=== PATIENT | female | born 1990 | race American Indian/Alaskan Native ===

== ENCOUNTER 2018-04-03 09:40 | Outpatient (CLI) | payer MEDICAID ==
[2018-04-03 10:01] VITALS: BP 112/70
[2018-04-03] MEDS ORDERED: LACTATED RINGERS 500 ML IV ONE (11:00)
--- NOTE | 2018-04-03 17:12 | Ultrasound Report ---
FINAL REPORT EXAM: US OB LIMITED HISTORY: PLACENTA SCAN TECHNIQUE: Limited OB ultrasound was performed PRIORS: None. FINDINGS: Single live intrauterine fetus is present in cephalic presentation with a heart rate of 149 beats per minute. The placenta is grade 2 and left lateral in location. No evidence of placental abruption. No evidence of placental separation. The study is limited for assessment for placenta previa as the int ernal cervical os was not well seen. IMPRESSION: No evidence of placental abruption.
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
== END 2018-04-03 13:57 | disposition home or self-care (01) ==
LOC: TRG 09:40
PROVIDERS: ATTEND Obstetrics & Gynecology
DX: O47.03 False labor before 37 completed weeks of gestation, third trimester (principal); O9A.213 Injury, poisoning and certain other consequences of external causes complicating pregnancy, third trimester; Z3A.34 34 weeks gestation of pregnancy; X58.XXXA Exposure to other specified factors, initial encounter; Y93.89 Activity, other specified; Y92.89 Other specified places as the place of occurrence of the external cause; Y99.8 Other external cause status
CPT/HCPCS: 59025; 76815; 76819

== ENCOUNTER 2020-06-07 23:03 | Emergency (ER) | payer MEDICAID ==
[2020-06-07 23:22] VITALS: BP 120/70
[2020-06-08 00:19] LABS: Bilirubin,Urine NEG (Negative); Blood,Urine LG (Negative); Color,Urine Yellow (Yellow); Mucus,Urine FEW /HPF
[2020-06-08 00:20] LABS: RBC,Urine > 182.0 /HPF (0.0-6.0)
[2020-06-08 00:21] LABS: Basophils % (Auto) 0.4 % (0.0-1.8); Eosinophils # (Auto) 0.1 K/mm3 (0.0-0.4); Hematocrit 30.4 % (30.3-42.9); Lymphocytes # (Auto) 2.3 K/mm3 (1.2-5.4); Lymphocytes % (Auto) 31.4 % (13.4-35.0); Mean Corpuscular HGB Conc 33 % (30-34); Mean Corpuscular Volume 85 fl (79-97); Monocytes # (Auto) 0.6 K/mm3 (0.0-0.8); Monocytes % (Auto) 7.7 % (0.0-7.3); Platelet Count 294 K/mm3 (140-440); Red Blood Count 3.57 M/mm3 (3.65-5.03); Red Cell Distribution Width 14.9 % (13.2-15.2)
--- NOTE | 2020-06-08 03:06 | Ultrasound Report ---
TRANSVAGINAL OB PELVIC ULTRASOUND INDICATION / CLINICAL INFORMATION: Dysfunctional uterine bleeding. Abdominal pain. COMPARISON: None available. FINDINGS: The uterus measures 4.6 x 3.2 x 3.9 cm. The endometrial stripe measures 4.3 mm. The endometrial cavit y is empty. The right ovary measures 2.9 x 1.9 x 2.0 cm and the left ovary 3.4 x 2.9 x 2.4 cm. There is normal bl ood flow to both ovaries on Doppler exam. There is a moderate amount of free fluid in the pelvis. I do not identify an extraovarian mass. IMPRESSION: 1. Moderate amount of free fluid in the pelvis without an extraovarian mass. 2. No evidence of intrauterine at this time. Signer Name: Reg Ramirez MD Signed: 06/08/2020 3:01 AM Workstation Name: [id number]
--- NOTE | 2020-06-08 05:25 | Emergency Department Report ---
ED Female HPI - General Chief complaint: Abdominal Pain Stated complaint: POSSIBLE MISSCARRIAGE Time Seen by Provider: 06/08/20 04:19 Source: patient Mode of arrival: Ambulatory Limitations: No Limitations - History of Present Illness Initial comments: 30-year-old F [place] female with asthma department complaining of heavy vaginal bleeding off and on for the pain is few months since stopping Depo. She states that she has been late for review. For the last repairs as well is unsure the etiology no nausea, no vomiting, no fever, chills, sweats, constipation. No chest pain no palpitations. She had a very high dose of today and advised to come to the emergency department for further evaluation due to her having a positive test. States that she is getting have an ultrasound around 9 AM today but said that due to the cramping pain she could not wait. -: Gradual Severity: moderate Quality: dull Consistency: constant Improves with: none Worsens with: none Are you Now?: No Associated Symptoms: vaginal bleeding. denies: abdominal pain, nausea/vomiting, loss of appetite, dysuria, hematuria - Related Data Home Medications Medication Instructions Recorded Confirmed Last Taken Vits96/Iron Fum/Folic 1 each PO QDAY 08/09/14 08/09/14 Unknown [ Tablet] Previous Rx's Medication Instructions Recorded Last Taken Type Promethazine [Phenergan] 25 mg PO Q6H PRN #20 tablet 08/10/14 Unknown Rx HYDROcodone/APAP 5-325 [[place] 1 each PO Q6HR PRN #15 tablet 06/28/15 Unknown Rx 5/325] Ibuprofen [Motrin] 800 mg PO Q8HR PRN #15 tablet 06/28/15 Unknown Rx Ondansetron [Zofran Odt] 4 mg PO Q8HR #15 tab.rapdis 06/28/15 Unknown Rx Nitrofurantoin [place]/M-Cryst 100 mg PO Q12HR #14 capsule 06/08/20 Unknown Rx [Macrobid CAP] Allergies Allergy/AdvReac Type Severity Reaction Status Date / Time No Known Allergies Allergy Verified 08/09/14 23:47 ED Review of Systems ROS: Stated complaint: POSSIBLE MISSCARRIAGE Other details as noted in HPI Comment: All other systems reviewed and negative ED Past Medical Hx - Past Medical History Previous Medical History?: Yes Hx Hypertension: No Hx Diabetes: No Hx Deep Vein Thrombosis: No Hx Renal Disease: No Hx Sickle Cell Disease: No Hx Headaches / Migraines: Yes Hx Seizures: No Hx Asthma: No Hx HIV: No - Surgical History Past Surgical History?: No - Social History Smoking Status: Never Smoker Substance Use Type: None - Medications Home Medications: Home Medications Medication Instructions Recorded Confirmed Last Taken Type Vits96/Iron Fum/Folic 1 each PO QDAY 08/09/14 08/09/14 Unknown History [ Tablet] Promethazine [Phenergan] 25 mg PO Q6H PRN #20 tablet 08/10/14 Unknown Rx HYDROcodone/APAP 5-325 [[place] 1 each PO Q6HR PRN #15 tablet 06/28/15 Unknown Rx 5/325] Ibuprofen [Motrin] 800 mg PO Q8HR PRN #15 tablet 06/28/15 Unknown Rx Ondansetron [Zofran Odt] 4 mg PO Q8HR #15 tab.rapdis 06/28/15 Unknown Rx Nitrofurantoin [place]/M-Cryst 100 mg PO Q12HR #14 capsule 06/08/20 Unknown Rx [Macrobid CAP] ED Physical Exam - General Limitations: No Limitations General appearance: alert, in no apparent distress - Head Head exam: Present: atraumatic, normocephalic - Eye Eye exam: Present: normal appearance, PERRL, EOMI - ENT ENT exam: Present: normal exam, normal orophraynx, mucous membranes moist - Neck Neck exam: Present: normal inspection - Respiratory Respiratory exam: Present: normal lung sounds bilaterally. Absent: respiratory distress - Cardiovascular Cardiovascular Exam: Present: regular rate, normal rhythm. Absent: systolic murmur, diastolic murmur, rubs, gallop - GI/Abdominal GI/Abdominal exam: Present: soft, tenderness (Tenderness with palpation to abdomen soft. Bowel sounds positive. No CVA tenderness noted. No suprapubic discomfort), normal bowel sounds - Extremities Exam Extremities exam: Present: normal inspection - Back Exam Back exam: Present: normal inspection - Neurological Exam Neurological exam: Present: alert, oriented X3 - Psychiatric Psychiatric exam: Present: normal affect, normal mood - Skin Skin exam: Present: warm, dry, intact, normal color. Absent: rash ED Course Vital Signs 06/07/20 23:19 Temperature 99.0 F Pulse Rate 89 Respiratory 18 Rate Blood Pressure 120/70 O2 Sat by Pulse 100 Oximetry ED Medical Decision Making - Lab Data Result diagrams: 06/07/20 23:52 Critical care attestation.: If time is entered above; I have spent that time in minutes in the direct care of this critically ill patient, excluding procedure time. ED Disposition Clinical Impression: On Depo-Provera for contraception, UTI (urinary tract infection), Threatened miscarriage Disposition: DC- TO HOME OR SELFCARE Is pt being admited?: No Does the pt Need Aspirin: No Condition: Stable Instructions: Threatened Miscarriage, Nitrofurantoin tablets or capsules, Vaginal Bleeding During , First Trimester, Urinary Tract Infection, Adult, [id number], Abdominal Pain (ED) Additional Instructions: Current hCG quant is 221 please be sure to have the number reevaluated in 3 to 5 days. Also take the antibiotics that were prescribed to help alleviate your urinary tract infection Prescriptions: Nitrofurantoin [place]/M-Cryst [Macrobid CAP] 100 mg PO Q12HR #14 capsule Referrals: PRIMARY CARE, [Primary Care Provider] - 3-5 Days
== END 2020-06-08 05:15 | disposition home or self-care (01) ==
LOC: ED 23:03
DX: O20.0 Threatened abortion (principal); Z30.42 Encounter for surveillance of injectable contraceptive; Z79.899 Other long term (current) drug therapy; Z3A.01 Less than 8 weeks gestation of pregnancy
CPT/HCPCS: 36415; 76817; 81001; 84702; 84703; 85025; 86900; 86901; 87086